=== PATIENT | male | born 1960 | race American Indian/Alaskan Native ===

== ENCOUNTER → 2016-11-06 | Outpatient (CLI) | payer OTHER ==
--- NOTE | 2016-11-06 10:11 | KCIC ---
PROCEDURE MRI lumbar spine without contrast. HISTORY Low back pain. Right leg pain and numbness. TECHNIQUE Sagittal T1, sagittal T2, sagittal STIR, axial T1, and axial T2 sequences are provided. COMPARISON July 11, 2015. FINDINGS There is no change in alignment. There is no worrisome marrow lesion. There is disc desiccation. Disc height is maintained throughout. The conus medullaris is normal in signal intensity and in position. Epidural lipomatosis is noted, most notable beginning at the level of L4 and extending through the sacrum. Subcutaneous edema is noted. There is a T1 and T2 hyperintense lesion in the upper pole of the right kidney measuring 1.8 centimeters in size, could also be prominence of the parapelvic fat. Additional probable simple cyst is noted in the right kidney measuring 10 millimeters. The numbering system assumes 5 lumbar type vertebral bodies. Findings by individual level are as follows: L1-L2: There is no canal or foraminal compromise. L2-L3: There is no canal or foraminal compromise. L3-L4: There is a minimal disc bulge and facet hypertrophy. There is prominent epidural fat. Thecal sac is compressed, midline AP diameter narrowed to 8-9 millimeters. This is mostly secondary to the epidural lipomatosis. There is no foraminal narrowing. L4-L5: Minimal disc bulge and facet hypertrophy are noted. Epidural fat compresses the thecal sac, midline AP diameter narrowed down to 9 millimeters. There is minimal foraminal narrowing. L5-S1: Thecal sac is diminutive at this level. Diffuse disc bulge again is in contact with the S1 nerve roots, without flattening of the nerve roots. There is facet hypertrophy. There is mild foraminal narrowing. This is greater on the right. Overall, findings appear similar to the prior exam performed on a low field strength magnet. IMPRESSION - Degenerative disc disease and facet hypertrophy noted in the lumbar spine. These findings along with epidural lipomatosis result in mild compression of the thecal sac in the lower lumbar spine with levels of up to mild foraminal narrowing. Findings are probably unchanged when compared to prior. - Two lesions in the right kidney, 1 of which appears to be a simple cyst, the other is incompletely characterized. Nonemergent renal ultrasound would be suggested as the initial step for further evaluation. Electronically signed by: Fabio Shea MD (Nov 06, 2016 10:09:45)
== END | disposition home or self-care (01) ==
LOC: KCIC MRI 08:08
DX: M51.36 Other intervertebral disc degeneration, lumbar region (principal); N28.9 Disorder of kidney and ureter, unspecified
CPT/HCPCS: 72148

== ENCOUNTER → 2019-03-04 | Outpatient (CLI) | payer OTHER ==
--- NOTE | 2019-03-04 12:10 | KCIC ---
EXAM: MRI RIGHT KNEE DATE: 03/04/2019 12:30 PM CLINICAL INDICATION: Right knee pain, crepitus. Instability. Pain is medially and laterally. COMPARISON: None. TECHNIQUE: Multiplanar, multisequence MRI of the right knee was performed without contrast. FINDINGS: No knee joint effusion. Trace Milton's cyst. ACL and PCL are intact. The MCL, fibular collateral ligament, biceps femoris, IT band and popliteus are intact. Extensor mechanism is intact. Medial meniscus: Intact Lateral meniscus: Intact Mild increased signal within the suprapatellar fat pad may be seen with anterior knee pain/impingement. Mild chondral thinning at the lateral weightbearing surface of the medial femoral condyle with subchondral edema. In addition there is fissuring of the patellar apex and medial patellar facet. No acute fracture or osteonecrosis. IMPRESSION: Medial and patellofemoral predominant chondromalacia. Mild increased signal within the supra patellar fat pad may be seen with anterior knee pain/impingement. Electronically signed by: Woo Sivla MD (03/04/2019 12:08 PM) [id number]
--- NOTE | 2019-03-04 12:44 | KCIC ---
MRI Lumbar Spine without contrast History: Low back pain, previous surgery, right lower extremity numbness, right hip pain Technique: Multiplanar, multi sequential noncontrast MR imaging was performed of the lumbar spine. Comparison: November 06, 2016 Findings: Lumbar vertebral body stature and AP alignment are unchanged, within normal limits. There is again mild disc desiccation L5-S1. There is no new significant marrow edema. There is nonspecific edema of the posterior subcutaneous fat of the lower back as seen previously. Conus terminates near L1. There is again hemangioma of the L3 vertebral body. L2-L3: Spinal canal and neural foramina are adequate. L3-L4: Spinal canal is adequate. There has been posterior decompression. There is minimal disc osteophyte complex. There is right posterior annular tear. There is again very mild inferior neural foramina compromise bilaterally by disc osteophyte complex. Spinal canal is adequate. L4-L5: There has been posterior decompression. Spinal canal is adequate. There is minimal disc osteophyte complex. There is again minimal narrowing of the inferior left neural foramen greater distally by disc osteophyte complex with contacting the undersurface exiting left L4 nerve root unchanged, right neural foramen not significantly narrowed. L5-S1: There has been interval posterior decompression. There is again posterior bulge and superimposed central protrusion about 2-3 mm AP without significant impingement of the descending S1 nerve roots, near ventral surface of descending left S1 nerve root. Spinal canal is overall adequate. There is mild neural foramina compromise bilaterally by facets and disc osteophyte complex. Impression: 1. Comparing with the previous 2017 exam, there has been posterior decompression L3-4 through L5-S1. There is no significant lumbar spinal stenosis. There is mild neural foramina compromise as described. There is multilevel mild spondylosis. Electronically signed by: Josias Will MD (03/04/2019 12:41 PM) [id number]
== END | disposition home or self-care (01) ==
LOC: KCIC MRI 11:23
DX: M47.816 Spondylosis without myelopathy or radiculopathy, lumbar region (principal); M94.261 Chondromalacia, right knee; M51.27 Other intervertebral disc displacement, lumbosacral region; M25.78 Osteophyte, vertebrae; M51.36 Other intervertebral disc degeneration, lumbar region; M25.361 Other instability, right knee; M23.8X1 Other internal derangements of right knee; D18.09 Hemangioma of other sites
CPT/HCPCS: 72148; 73721